=== PATIENT | female | born 1945 | race Caucasian/White ===

== ENCOUNTER → 2017-03-29 | Outpatient (CLI) | payer MEDICARE ==
[~2017-03-29] MED LIST: DORZOLAMIDE OP; HYDROCHLOROTHIA25 MG PO; LATANOPROST2.5 ML OP; LOSARTAN POTAS100 MG PO
--- NOTE | 2017-03-29 17:27 | Diagnostic Imaging Report ---
CT chest without enhancement CPT code: 22153 INDICATION: Lung nodule, shortness of breath for several days TECHNIQUE: Thin collimation axial images obtained from the thoracic inlet to the level of the diaphragm without intravenous contrast. RADIATION DOSE: Total DLP: 232 mGy*cm Estimated effective dose: (DLP x 0.015 x size factor) mSv CTDIvol has been reviewed. It is below the limits set by the Radiation Protocol Committee (RPC). COMPARISON: None. CHEST FINDINGS: Lymph nodes: No enlarged axillary or supraclavicular lymphadenopathy. Mediastinal lymph nodes are enlarged. For example, a right paratracheal lymph node measures 1.7 x 1.0 cm. Precarinal lymph node measures 1.1 x 1.7 cm. Subcarinal lymph node measures 8 mm in AP dimension. Lack of intravenous contrast limits evaluation of the jaqui for lymphadenopathy. Thyroid: Normal in size without mass in the visualized parenchyma.. Mediastinum: Diffuse atherosclerotic calcifications. The heart is normal in size. The pericardial fat pads are prominent. No pericardial effusion. The esophagus is normal. The main airways are clear. Lungs: Right: Mild apical pleural parenchymal thickening. There is mild centrilobular emphysema and diffuse bronchial wall thickening suggestive of chronic bronchitis. There is chronic atelectasis in the base of the right middle lobe and in the posterior basal segment of the lower lobe. Calcified nodule in the upper lobe measures 3 mm (image 35). Left: Mild apical pleural parenchymal thickening and centrilobular emphysema. Noncalcified nodule in the superior segment of the lower lobe (image 32) measures 5 mm. Noncalcified nodule in the posterior lower lobe (image 57) measures 4 mm. Calcified nodule in the anterior basal segment of the lower lobe measures 3 mm (image 52). There is diffuse bronchial wall thickening suggestive of chronic bronchitis. Pleura: No pleural effusion or pleural based mass. ABDOMEN FINDINGS: The liver is lobulated in contour with normal attenuation. No evidence of mass. Visualized portions of the pancreas, spleen, and adrenal glands are unremarkable. Bones: A small hemangioma is in the body of T10. There is mild scoliosis of the upper lumbar spine. There are no destructive lesions. IMPRESSION: 1. Emphysema and chronic bronchitis. 2. Prominent mediastinal lymph nodes are nonspecific. Recommend 6-12 month follow-up with contrast-enhanced CT to assess interval change. 3. Noncalcified pulmonary nodules as described above. Recommend annual surveillance with CT to confirm stability. 4. 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 Signed by: Dr. González Doan MD on 03/29/2017 5:24 PM
== END ==
LOC: CT 15:12
PROVIDERS: ATTEND Internal Medicine Interventional Cardiology
DX: R91.1 Solitary pulmonary nodule (principal); R06.02 Shortness of breath
CPT/HCPCS: 71250

== ENCOUNTER → 2020-08-02 | Outpatient (CLI) | payer MEDICARE | LOC: CT 14:21 | PROVIDERS: ATTEND Internal Medicine Interventional Cardiology | DX: R91.8 Other nonspecific abnormal finding of lung field (principal) | CPT/HCPCS: 71250 ==